=== PATIENT | male | born 1990 | race Caucasian/White ===

== ENCOUNTER 2024-10-04 17:11 | Emergency (ER) | payer BC ==
[2024-10-04 17:30] VITALS: TEMP 98.8
--- NOTE | 2024-10-04 17:52 | ERPHSYRPT ---
- History of Present Illness Time Seen by Provider: 10/04/24 17:20 Source: patient, family Exam Limitations: no limitations Patient Subjective Stated Complaint: Pt reports he has had trouble in the past with a popping sensation in right chest under right clavicle. Today the popping was a severe pain and pt reports a lot of pain with moving right arm up and down. Triage Nursing Assessment: Pt alert and oriented x3. Respirations easy/nonlabored. Skin w/p/d. Ambulated to ED cot without difficulty. No obvious deformities palpated/observed. Physician History: This is a 34-year-old white male patient of Dr. Ramos who arrives to the emergency department accompanied by the patient's spouse with the complaint of a popping sensation in his right chest below the right clavicle. He has had this in the past but the pain has never been this severe or intense. The popping today was associated with a significant amount of sharp pain and when he is not moving his right upper extremity he does not have significant pain. However when he moves the right upper extremity up and down he can recreate the sharp pain. He has no shortness of breath. Occurred: just prior to arrival Method of Injury: unknown Quality: sharpness, stabbing Severity of Pain-Max: moderate Severity of Pain-Current: moderate Extremities Pain Location: other: right (Right chest anterior midclavicular line below the right clavicle) Modifying Factors: Improves With: movement (Worsens), other (Improves when there is no movement) Associated Symptoms: none, No back pain, No dyspnea, No jaw pain, No nausea, No short of breath, No vomiting Allergies/Adverse Reactions: aspirin [From [place]] Adverse Reaction (Verified 10/04/24 17:25) Hives citric acid [From [place]] Adverse Reaction (Verified 10/04/24 17:25) Hives sodium bicarbonate [From [place]] Adverse Reaction (Verified 10/04/24 17:25) Hives Home Medications: Lisinopril 10 mg [Zestril 10 MG] 10 mg PO DAILY 10/04/24 [History] Travel Risk - International Travel Have you traveled outside of the country in past 3 weeks: No - Emerging Infectious Disease Are you exhibiting symptoms associated with any current EIDs: No - Review of Systems Constitutional: No Symptoms Eyes: No Symptoms Ears, Nose, & Throat: No Symptoms Respiratory: No Symptoms Cardiac: No Symptoms Abdominal/Gastrointestinal: No Symptoms Genitourinary Symptoms: No Symptoms Musculoskeletal: Other (Chest wall pain with movement of right upper extremity) Skin: No Symptoms Neurological: No Symptoms Psychological: No Symptoms Endocrine: No Symptoms Hematologic/Lymphatic: No Symptoms Immunological/Allergic: No Symptoms All Other Systems: Reviewed and Negative - Past Medical History Pertinent Past Medical History: Yes Cardiac History: Hypertension GI Medical History: GERD - Past Surgical History Past Surgical History: Yes Male Surgical History: Vasectomy Significant Family History: no pertinent family hx - Social History Smoking Status: Never smoker Exposure to second hand smoke: No Drug Use: none - Social Determinants of Health Will the patient participate in the screening: Declined to provide - Nursing Vital Signs Nursing Vital Signs: Initial Vital Signs Temperature 98.8 F 10/04/24 17:19 Pulse Rate 99 H 10/04/24 17:19 Respiratory Rate 16 10/04/24 17:19 Blood Pressure 142/92 10/04/24 17:19 O2 Sat by Pulse Oximetry 93 L 10/04/24 17:19 Pain Scale Pain Intensity 4 - Physical Exam General Appearance: no apparent distress, alert, anxiety Eyes, Ears, Nose, Throat Exam: normal ENT inspection, moist mucous membranes Neck Exam: normal inspection, non-tender, supple, full range of motion Cardiovascular/Respiratory Exam: chest non-tender, normal breath sounds, regular rate/rhythm, heart sounds normal, no ecchymosis, no respiratory distress, No palpable fracture, No rib tenderness, No subcutaneous emphysema Abdominal Exam: non-tender Back Exam: normal inspection, normal range of motion, No CVA tenderness, No vertebral tenderness Shoulder Exam: normal inspection, non-tender, no evidence of injury, normal ROM Elbow/Forearm Exam: normal inspection, non-tender, no evidence of injury, normal ROM Wrist Exam: normal inspection, non-tender, no evidence of injury, normal ROM Hand Exam: normal inspection, non-tender, no evidence of injury, normal ROM Neuro/Tendon Exam: normal sensation, normal motor functions, normal tendon functions, responds to pain, no evidence tendon injury Mental Status Exam: alert, oriented x 3, cooperative Skin Exam: normal color, warm, dry SpO2 Interpretation: borderline oxygenation SpO2: 93 O2 Delivery: Room Air - Course Nursing assessment & vital signs reviewed: Yes Ordered Tests: Active Orders 24 hr Category Date Time Status CHEST 2 VIEWS (PA AND LAT) Stat Exams 10/04/24 17:21 Taken CLAVICLE Stat Exams 10/04/24 17:21 Taken Medication Summary Discontinued Medications Generic Name Dose Route Start Last Admin Trade Name Gracia PRN Reason Stop Dose Admin Orphenadrine Citrate 100 mg 10/04/24 19:13 10/04/24 19:21 Orphenadrine Citrate 100 Mg Er Tab PO 10/04/24 19:14 100 mg STAT ONE Administration Orphenadrine Citrate Confirm 10/04/24 19:19 Orphenadrine Citrate 100 Mg Er Tab Administered 10/04/24 19:20 Dose 100 mg PO .STK-MED ONE Oxycodone/Acetaminophen 1 tab 10/04/24 19:13 10/04/24 19:20 Oxycodone Hcl/Apap 5 Mg/325 Mg Tablet PO 10/04/24 19:14 1 tab STAT STA Administration Oxycodone/Acetaminophen Confirm 10/04/24 19:19 Oxycodone Hcl/Apap 5 Mg/325 Mg Tablet Administered 10/04/24 19:20 Dose 1 tab .ROUTE .STK-MED ONE Prednisone 20 mg 10/04/24 19:13 10/04/24 19:20 Prednisone 20 Mg Tablet PO 10/04/24 19:14 20 mg STAT ONE Administration Prednisone Confirm 10/04/24 19:19 Prednisone 20 Mg Tablet Administered 10/04/24 19:20 Dose 20 mg .ROUTE .STK-MED ONE - Progress Progress: unchanged Progress Note: 10/04/24 19:10 My medical decision making of the assignment of moderate complexity is based on review of the patient's past medical history, review the patient's medication list, reviewed patient drug allergy list, history present illness and physical findings on examination. The workup in this patient includes x-ray of right clavicle and PA lateral x-ray of chest. Differential diagnosis includes but is not limited to acute cardiopulmonary process, rib fracture/dislocation, right clavicular fracture/dislocation, muscle skeletal pain I interpreted the preliminary report of the following x-rays: The 2 view of the right clavicle shows no acute fracture or dislocation. The PA lateral chest x-ray shows no acute cardiopulmonary process and no evidence of any dislocation or fracture of ribs. 10/04/24 19:38 Dr. Lara, our in-house radiologist interpreted the final reports of the following x-rays: The 2 view of the right clavicle shows no acute fracture or dislocation The PA lateral chest x-ray shows no acute cardiopulmonary process and no evidence of any dislocation or fracture of ribs Counseled pt/family regarding: diagnosis, need for follow-up, rad results Medical Desision Making - Independent Historian Additional History obtained from: Spouse - Risk of complications The pt has a mod risk of morbidity or mortality based on: Need for prescription drug management - Departure Departure Disposition: Home Clinical Impression: Rib pain on right side Condition: Stable Critical Care Time: No Referrals: LUCIUS RAMOS MD [Primary Care Provider] - Follow up/PCP as directed Instructions: Rib injury in adults Additional Instructions: Ice pack to tender area 3 times a day for the next 3 days. Take your medications as prescribed. Call your primary care provider tomorrow, 10/05/2024, to make arranges for follow-up appointment for further evaluation management. Prescriptions: Prednisone 10 mg [Deltasone 10 mg] 10 mg PO TID #12 tablet Orphenadrine Citrate 100 mg [Norflex 100 MG Tablet] 100 mg PO BID #10 tab
[2024-10-04 19:12] VITALS: O2SAT 93
[2024-10-04 19:15] VITALS: BP 133/94; PULSE 78; RESP 16
[2024-10-04] MEDS ORDERED: Norflex 100 MG Tablet PO ONE (19:19)
[2024-10-04] MEDS ORDERED: DELTASONE 20 MG ONE (19:19)
[2024-10-04] MEDS ORDERED: PERCOCET TABLET 5/325MG ONE (19:19)
[2024-10-04] MEDS: PERCOCET TABLET 5/325MG PO STA (19:20)
[2024-10-04] MEDS: DELTASONE 20 MG PO ONE (19:20)
[2024-10-04] MEDS: Norflex 100 MG Tablet PO ONE (19:21)
--- NOTE | 2024-10-05 08:34 | XRAY ---
Indication: Pain. Comparison: None 2 view right clavicle obtained. No bony, articular, or soft tissue abnormalities.
--- NOTE | 2024-10-05 08:34 | XRAY ---
Indication: Pain. Comparison: None PA/lateral chest demonstrates normal heart and lungs with incidental right base calcified granuloma. Bony thorax intact. No acute findings.
== END 2024-10-04 19:40 | disposition home or self-care (01) ==
LOC: ED 17:11
DX: R07.81 Pleurodynia (principal); M25.511 Pain in right shoulder; I10 Essential (primary) hypertension; Z79.52 Long term (current) use of systemic steroids; Z79.899 Other long term (current) drug therapy
CPT/HCPCS: 71046; 73000; 99283; 99284; A9270-GY